=== PATIENT | male | born 1975 | race African-American/Black ===

== ENCOUNTER 2021-03-19 09:55 | Emergency (ER) | payer OTHER ==
[~2021-03-19] VITALS: Ht 167.6 cm; Wt 85.3 kg
[2021-03-19 11:11] VITALS: BP 125/79; TEMP 98
== END 2021-03-19 11:17 | disposition home or self-care (01) ==
LOC: ED 09:55
DX: S39.012A Strain of muscle, fascia and tendon of lower back, initial encounter (principal); M62.830 Muscle spasm of back; X50.0XXA Overexertion from strenuous movement or load, initial encounter; Y92.89 Other specified places as the place of occurrence of the external cause
CPT/HCPCS: 96372; 99283; J1885

== ENCOUNTER 2021-04-10 12:24 | Emergency (ER) | payer OTHER ==
[~2021-04-10] VITALS: Ht 167.6 cm; Wt 83.9 kg
[2021-04-10 12:45] VITALS: BP 122/81; TEMP 98.1
== END 2021-04-10 16:29 | disposition home or self-care (01) ==
LOC: ED 12:24
DX: Z53.21 Procedure and treatment not carried out due to patient leaving prior to being seen by health care provider (principal)
CPT/HCPCS: 99281

== ENCOUNTER 2021-07-09 07:36 | Emergency (ER) | payer OTHER ==
[~2021-07-09] VITALS: Ht 167.6 cm; Wt 83.9 kg
[2021-07-09 07:42] VITALS: BP 120/90; TEMP 97.8
== END 2021-07-09 09:42 | disposition home or self-care (01) ==
LOC: ED 07:36
DX: M51.36 Other intervertebral disc degeneration, lumbar region (principal); X50.9XXA Other and unspecified overexertion or strenuous movements or postures, initial encounter; Y92.89 Other specified places as the place of occurrence of the external cause
CPT/HCPCS: 96372; 99283; J1885